=== PATIENT | male | born 1955 | race Caucasian/White ===

== ENCOUNTER → 2016-12-14 13:23 | Outpatient (CLI) | payer MEDICARE, BC ==
[2014-06-09 08:42] VITALS: BMI 31.1
[~2016-12-14 13:23] MED LIST: ALEVE220 MG PO; AMBIEN10 MG PO; CRESTOR10 MG PO; MIRAPEX0.25 MG PO; PREVACID30 MG PO; SYNTHROID125 MCG PO; XANAX0.5 MG PO
== END | disposition home or self-care (01) ==
LOC: D.MRI 13:23
DX: M25.511 Pain in right shoulder (principal)

== ENCOUNTER → 2017-05-12 08:33 | Outpatient (CLI) | payer MEDICARE, BC ==
[2014-06-09 08:42] VITALS: BMI 31.1
== END | disposition home or self-care (01) ==
LOC: D.MRI 08:30
DX: M25.512 Pain in left shoulder (principal)